=== PATIENT | male | born 1985 | race Caucasian/White ===

== ENCOUNTER 2020-08-11 16:38 | Emergency (ER) | payer BC ==
[2020-08-11] MEDS ORDERED: Benzonatate 100 MG Cap PO ONE (17:16)
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
--- NOTE | 2020-08-11 17:58 | CR ---
INDICATION: cough and dyspnea TECHNIQUE: Chest 1 view. COMPARISON: None. FINDINGS: Cardiovascular and mediastinum: Heart size and vasculature are normal in caliber and appearance. Mediastinum is within normal limits. Lungs and pleural space: Lungs are clear. No sign of infiltrate or mass. No sign of pleural effusion. No pneumothorax. Bones and soft tissues: No significant findings. IMPRESSION: Unremarkable chest. Dictated by: Franky Hall MD @ 08/11/2020 17:57:15 (Electronically Signed)
== END 2020-08-11 19:00 | disposition home or self-care (01) ==
LOC: MW.ED 16:38
DX: U07.1 COVID-19 (principal); I10 Essential (primary) hypertension; Z87.891 Personal history of nicotine dependence; Z88.6 Allergy status to analgesic agent; Z79.899 Other long term (current) drug therapy
CPT/HCPCS: 71045; 93005; A9270; 93010; 99284

== ENCOUNTER 2020-08-18 21:44 | Emergency (ER) | payer BC ==
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
[2020-08-18] MEDS ORDERED: Dexamethasone 10 MG/ML SDV IVPUSH ONE (22:00)
[2020-08-18] MEDS ORDERED: Acetaminophen 500 MG Tab PO ONE (22:00)
[2020-08-18] MEDS ORDERED: Sodium Chloride 0.9% 2.5 ML Syringe FLUSH PRN (22:00)
[2020-08-18] MEDS ORDERED: Sodium Chloride 0.9% 1,000 ML IV ONE (22:00)
[2020-08-18] MEDS ORDERED: Albuterol/Ipratropium 3.0-0.5 MG/3 ML Neb Soln NEB ONE (22:00)
[2020-08-18] MEDS ORDERED: Sodium Chloride 0.9% 10 ML Syringe FLUSH PRN (22:00)
[2020-08-18] MEDS ORDERED: Ketorolac 15 MG/ML SDV IVPUSH ONE (22:01)
[2020-08-18 22:23] LABS: BLOOD UREA NITROGEN,BUN 13 mg/dL (7.0-18.0); CARBON DIOXIDE,CO2 27.5 mmol/L (21.0-32.0); CHLORIDE,CL 90 mmol/L (98-107); GLUCOSE RANDOM 108 mg/dL (74-106); POTASSIUM,K 3.8 mmol/L (3.5-5.1); SODIUM,NA 127 mmol/L (136-148)
--- NOTE | 2020-08-18 23:19 | CR ---
INDICATION: Cough. Shortness of breath. Positive for COVID. History of asthma. COMPARISON: 08/11/2020 chest radiograph. FINDINGS/IMPRESSION: There are new patchy bilateral pulmonary infiltrates consistent with COVID-19 pneumonia. No pleural effusions are noted. Heart size is within normal limits. Included bones are unremarkable. Dictated by Chino Alexander MD @ 08/18/2020 11:16:03 PM Dictated by: Chino Alexander MD @ 08/18/2020 23:17:10 (Electronically Signed)
== END 2020-08-19 01:12 | disposition home or self-care (01) ==
LOC: MW.ED 21:44
DX: U07.1 COVID-19 (principal); E78.00 Pure hypercholesterolemia, unspecified; I10 Essential (primary) hypertension; J45.909 Unspecified asthma, uncomplicated; Z88.6 Allergy status to analgesic agent; Z79.899 Other long term (current) drug therapy
CPT/HCPCS: 36415; 71045; 80053; 83605; 83880; 84484; 85025; 85379; 85610; 85730; 86140; 93005; 96374; 96375; 99285; A9270; J1100; J1885; J7030; 93010; 99284; J7620-GY

== ENCOUNTER 2023-06-30 08:10 | Day surgery (SDC) | payer BC ==
[~2023-06-30 08:10] MED LIST: Dexmedetomidine 200 MCG/2 ML SDV ONE; Lactated Ringers 1,000 ML IV SCH; Water For Injection, Sterile 20 ML ONE; propofoL 50 ML ONE
[2023-06-30] MEDS ORDERED: Propofol 200 MG/20 ML SDV ONE (09:57)
[2023-06-30] MEDS ORDERED: Lactated Ringers 1,000 ML IV SCH (10:30)
== END 2023-06-30 10:55 | disposition home or self-care (01) ==
LOC: MW.SDS 08:10
PROVIDERS: ATTEND Surgery
DX: K29.50 Unspecified chronic gastritis without bleeding (principal); K21.00 Gastro-esophageal reflux disease with esophagitis, without bleeding; K44.9 Diaphragmatic hernia without obstruction or gangrene; K64.4 Residual hemorrhoidal skin tags; E78.00 Pure hypercholesterolemia, unspecified; I10 Essential (primary) hypertension; J45.909 Unspecified asthma, uncomplicated; I25.10 Atherosclerotic heart disease of native coronary artery without angina pectoris; G43.909 Migraine, unspecified, not intractable, without status migrainosus; E66.9 Obesity, unspecified; Z88.8 Allergy status to other drugs, medicaments and biological substances; Z79.82 Long term (current) use of aspirin; Z79.899 Other long term (current) drug therapy; Z87.11 Personal history of peptic ulcer disease; Z80.0 Family history of malignant neoplasm of digestive organs; Z87.891 Personal history of nicotine dependence; Z68.32 Body mass index [BMI] 32.0-32.9, adult
CPT/HCPCS: 43239; 45378; J2704; J7120; 00813; J3490

== ENCOUNTER 2024-12-08 07:36 | Emergency (ER) | payer BC, OTHER ==
[2024-12-08] MEDS ORDERED: Sodium Chloride 0.9% 10 ML Syringe FLUSH PRN (08:13)
[2024-12-08] MEDS ORDERED: Sodium Chloride 0.9% 2.5 ML Syringe FLUSH PRN (08:13)
[2024-12-08] MEDS: diphenhydrAMINE 50 MG/ML SDV IVPUSH ONE (08:36)
[2024-12-08] MEDS: Metoclopramide 10 MG/2 ML SDV IVPUSH ONE (08:36)
[2024-12-08] MEDS: Lactated Ringers 1,000 ML IV ONE (08:36)
[2024-12-08 08:48] LABS: BASOPHILS ABSOLUTE AUTO 0.07 K/uL (0.00-0.20); EOSINOPHILS ABSOLUTE AUTO 0.36 K/uL (0.00-0.45); EOSINOPHILS PERCENT AUTO 5.1 % (0.0-6.0); HEMATOCRIT 36.6 % (42.0-52.0); HEMOGLOBIN 11.2 g/dL (14.0-18.0); IMMATURE GRAN ABSOLUTE AUTO 0.02 K/uL (0.00-0.05); IMMATURE GRAN PERCENT AUTO 0.3 % (0.0-0.4); LYMPHOCYTES ABSOLUTE AUTO 3.17 K/uL (1.00-4.80); LYMPHOCYTES PERCENT AUTO 44.6 % (24.0-44.0); MEAN CORPUSCULAR HEMOGLOBIN 23.5 pg (28.0-32.0); MEAN CORPUSCULAR HGB CONC 30.6 g/dL (32.0-36.0); MEAN CORPUSCULAR VOLUME 76.7 fL (83.0-99.0); MEAN PLATELET VOLUME 9.7 fL (9.4-12.4); MONOCYTES ABSOLUTE AUTO 0.65 K/uL (0.00-0.80); MONOCYTES PERCENT AUTO 9.2 % (0.0-8.0); NEUTROPHILS ABSOLUTE AUTO 2.83 K/uL (1.80-7.70); NEUTROPHILS PERCENT AUTO 39.8 % (41.0-71.0); PLATELET COUNT,PLT 352 K/uL (150-400); RED BLOOD CELL COUNT 4.77 M/uL (4.52-5.90)
[2024-12-08 09:15] LABS: A/G RATIO 1.1 (0.9-1.6); ALBUMIN 3.7 g/dL (3.4-5.0); BILIRUBIN TOTAL 0.9 mg/dL (0.2-1.0); CALCIUM 8.8 mg/dL (8.5-10.1); CARBON DIOXIDE,CO2 28.4 mmol/L (21.0-32.0); CREATININE 1.2 mg/dL (0.8-1.3); EST CRCL DRUG DOSING (CG) 81.01 mL/min; POTASSIUM,K 3.5 mmol/L (3.5-5.1)
== END 2024-12-08 10:52 | disposition home or self-care (01) ==
LOC: MW.ED 07:36
DX: R51.9 Headache, unspecified (principal); R41.0 Disorientation, unspecified; D64.9 Anemia, unspecified; K92.2 Gastrointestinal hemorrhage, unspecified; I10 Essential (primary) hypertension; K21.9 Gastro-esophageal reflux disease without esophagitis; E66.9 Obesity, unspecified; Z75.3 Unavailability and inaccessibility of health-care facilities; Z88.8 Allergy status to other drugs, medicaments and biological substances; Z79.82 Long term (current) use of aspirin; Z79.899 Other long term (current) drug therapy; Z86.16 Personal history of COVID-19
CPT/HCPCS: 36415; 70450; 80053; 83690; 84484; 85025; 96361; 96374; 96375; 99285; J1200; J2765; J7120; 99283